=== PATIENT | male | born 1945 | race Caucasian/White ===

== ENCOUNTER 2016-07-29 10:43 | Day surgery (SDC) | payer MEDICARE, OTHER ==
[2016-07-29] MEDS ORDERED: CEFAZOLIN SODIUM 2 GRAM PREMIX 100 ML IV ONE (10:52)
[2016-07-29] MEDS ORDERED: PROPOFOL 20 ML IV ONE (10:54)
[2016-07-29] MEDS ORDERED: MIDAZOLAM HCL 1 MG/ML 2ML VIAL ONE ×2 (10:54→13:47)
[2016-07-29] MEDS ORDERED: FENTANYL 100 MCG/2 ML VIAL ONE ×2 (10:55→13:47)
[2016-07-29] MEDS ORDERED: CEFAZOLIN SODIUM 2 GRAM PREMIX 100 ML IV PRN (11:00)
[2016-07-29] MEDS ORDERED: SODIUM CHLORIDE 0.9% 1,000 ML ONE (11:20)
[2016-07-29] MEDS ORDERED: IV START KIT ONE (11:45)
[2016-07-29] MEDS ORDERED: NERVE BLOCK PROCEDURAL TRAY 1 EACH ONE (11:59)
[2016-07-29] MEDS ORDERED: ROPIVACAINE 0.5% 30 ML VIAL ONE (11:59)
[2016-07-29 12:07] VITALS: BMI 31.0
[2016-07-29] MEDS ORDERED: ONDANSETRON 4 MG/2ML 2 ML VIAL ONE (14:21)
[2016-07-29] MEDS ORDERED: HYDROMORPHONE HCL 1 MG/ML SYRINGE IV PRN ×2 (14:52→15:48)
[2016-07-29] MEDS ORDERED: MEPERIDINE 25 MG/ML SYRINGE IV PRN (14:52)
[2016-07-29] MEDS ORDERED: NALOXONE HCL 0.4 MG/ML VIAL IV PRN (14:52)
[2016-07-29] MEDS ORDERED: LABETALOL HCL 5 MG/ML 20ML VIAL IV PRN (14:52)
[2016-07-29] MEDS ORDERED: PROMETHAZINE HCL 25 MG/ML VIAL IM PRN (14:52)
[2016-07-29] MEDS ORDERED: ONDANSETRON 4 MG/2ML 2 ML VIAL IV PRN ×2 (14:52→15:48)
[2016-07-29] MEDS ORDERED: ATROPINE SULFATE 0.4 MG/1 ML VIAL IV PRN (14:52)
[2016-07-29] MEDS ORDERED: HYDRALAZINE HCL 20 MG/1 ML VIAL IV PRN (14:52)
[2016-07-29] MEDS ORDERED: ON-Q PUMP/ROPIVACAINE 0.2% 400 ML in PREMIX BAG 1 EACH NB PRN (14:52)
[2016-07-29] MEDS: FENTANYL 100 MCG/2 ML VIAL IV PRN ×2 (14:57→15:05)
[2016-07-29] MEDS ORDERED: ON-Q PUMP/ROPIVACAINE 0.2% 450 ML ONE (14:59)
[2016-07-29] MEDS ORDERED: LACTATED RINGERS 1,000 ML IV SCH (15:00)
--- NOTE | 2016-07-29 15:00 | PCMBPN ---
Brief Post Op Note: Date of Procedure: 07/29/16 Preoperative Diagnosis: s/p right TKA with suboptimal ROM Postoperative Diagnosis: 1. [Same] Procedure: closed manipulation right TKA Surgeon: Dillon Muir MD Anesthesia: general/add block ([place]) Findings: ROM obtained to 120 flexion Condition: stable to par Complications: none IV Fluids: 900 mLs of LR [] Urine Output:no acosta Estimated Blood Loss: 0 Tourniquet Time: [N/A] Specimens: [N/A] Implants: none Drains: [N/A]
--- NOTE | 2016-07-29 15:06 | HP ---
DATE OF CLINIC: 07/24/2016 DANIELE ARMIJO : 1945 PLANNED PROCEDURE: Right Knee Closed Manipulation Under Anesthesia with Possible Open Arthrotomy and Debridement S/P Total Knee Replacement 05/20/16 DATE OF PROCEDURE: July 29, 2016 SURGEON: Dr. Dillon Muir PCP: Dr. Carlton Bobby HISTORY OF PRESENT ILLNESS Daniele Armijo is a 71 year old male. * Medication list reviewed with patient allergy list reviewed with patient. Mr. Armijo f/u today with his s/p right TKA completed on 05/20/16. Patient presents in good spirits. He is ambulating without an assistive device. He is still struggling with his motion, but he has reached the 90 degree flexion point with PT. He has not suffered any traumatic events. He states that after therapy his knee does get quite stiff, but then loosens up. He is off of pain medication at this point, but does have 5/10 pain when he works hard with therapy. PT is ongoing at [facility] in [place]. Patient denies any fever, wound complications, motor or sensory dysfunction. CURRENT MEDICATION * Calcium + D3 600-200 MG-UNIT Tablet 2 once a day 0 days, 0 refills * Glucosamine Chond Complex/MSM Tablet 2 once a day 0 days, 0 refills * Lantus Insulin 120 Injectable as directed 45 units daily, 0 days, 0 refills * Levothyroxine Sodium 75 MCG Tablet 1 once a day 0 days, 0 refills * MethylPREDNISolone 4 MG Tablet Therapy Pack Medrol Dose pack - Instructions per pharmacy, 7 days, 0 refills * NovoLOG 100 UNIT/ML Solution as directed 0 days, 0 refills * Omeprazole 20 MG Tablet Delayed Release as directed 1 tablet every other day, 0 days, 0 refills * OxyCODONE HCl 5 MG Tablet 1-2 po q 4 hours for break thru pain if needed-TO BE USED FOR AFTER SURGERY, 5 days, 0 refills * Pravastatin Sodium 40 MG Tablet 1 once a day 0 days, 0 refills * SudoGest 12 Hour 120 MG Tablet Extended Release 12 Hour as needed 0 days, 0 refills * Tamsulosin HCl 0.4 MG Capsule 1 once a day 0 days, 0 refills * TraMADol HCl 50 MG Tablet 1 po q 6 hours prn pain-TO BE USED FOR AFTER SURGERY, 5 days, 0 refills PAST MEDICAL/SURGICAL HISTORY Reported: Medical: Diabetes Mellitus and Thyroid Disorder. Surgical / Procedural: Knee replacement Right knee replaced 05/20/[address] Muir, Hernia repair umbilical 2009, Arthroscopy Right knee scope/PMM/PLM/chondral debridement 07/25/[address] Muir, and Tonsilectomy 1955. SOCIAL HISTORY Behavioral: Caffeine use Occ and non-smoker never smoked. Smoking status: Never smoker. Alcohol: Alcohol 2-3 beers a year and alcohol use Seldom. Work: Occupation Retired automobile accessories installer. ALLERGIES * No Known Allergies REVIEW OF SYSTEMS Systemic: No fever and no recent weight change. Head: No head symptoms. Cardiovascular: No cardiovascular symptoms. Pulmonary: No pulmonary symptoms. Gastrointestinal: No gastrointestinal symptoms. Psychological: No psychological symptoms. Skin: No skin lesions and no rash. PHYSICAL FINDINGS * Vitals taken 07/24/2016 09:38 am BP-Sitting R 130/87 mmHg 100 - 120/60 - 80 BP Cuff Size Regular Pulse Rate-Sitting 80 bpm 50 - 100 Respiration Rate 16 per min 18 - 26 Temp-Oral 98.1 F 96 - 101 Height 71 in 64 - 74 Weight 225 lbs 121 - 205 Body Mass Index 31.4 kg/m2 Body Surface Area 2.22 m2 Pain Level 4 Ears, Nose, Throat: * ENT: normal. Lungs: * Clear to auscultation. Cardiovascular: Heart Rate and Rhythm: * Normal. Abdomen: * Normal. Neurological: Motor: * Dominant Hand = Left Hand. This is a well-developed, well-nourished, obese, 70-year-old male presenting to the office today in no acute distress. He is alert and oriented x4 with a normal mood and affect. Exam of the lower extremities: Patient is ambulating today with a stiffened gait lacking full extension on swing through, otherwise moving in a mid-foot to toe fashion. He has good balance and stance. Exam of the right knee reveals the incision site to be well-healed and benign in appearance. The skin is otherwise free of wound, rash, lesion or discoloration. Patient does have a moderate effusion. He has minimal focal periarticular tenderness on palpation. AROM was 3-80 degrees with improvement passively to near 90 degrees. The thigh exhibited some tightness laterally over the IT band. Patient notes he has had some spasm at that point intermittently. Thigh was otherwise soft and NT. The patella was tracking well. The calf was soft and NT. The distal motor, sensory and vascular function is intact with palpable dorsalis and posterior tibialis pulses. ASSESSMENT * Aftercare following joint replacement surgery - doing reasonably well 6 weeks post right TKA, however motion remains suboptimal THERAPY * Patient fall risk screen positive. * Patient eligible for fall risk assessment. * Patient received fall risk assessment. PLAN * OTHER TraMADol HCl 50 MG TABS, 1 po q 6 hours prn pain-TO BE USED FOR AFTER SURGERY, 5 days, 0 refills * Aftercare following joint replacement surgery OxyCODONE HCl 5 MG TABS, 1-2 po q 4 hours for break thru pain if needed-TO BE USED FOR AFTER SURGERY, 5 days, 0 refills Right knee closed manipulation under anesthesia with possible open arthrotomy and debridement. Discussed with patient in detail the limitations, expectations as well as risks and possible complications of surgery including, but not limited to wound problems or infection, neurovascular injury, continue knee pain, stiffness or dysfunction including the possibility of prosthetic wear or failure over time that may require additional operative or non-operative treatment. Patient also realizes the perioperative risks including risks associated with anesthesia and would like to proceed. A full PAR conference was held, questions and concerns addressed and informed consent was obtained. Patient will be sent from my office for completion of the preoperative workup. We will plan on using an adductor nerve block and catheter for post op pain management as well as a CPM machine. He will likely stay extended [facility] Carlton Bobby MD Internal Medicine [facility] CC: Carlton Bobby MD Internal Medicine [facility]/
[2016-07-29] MEDS ORDERED: HYDROMORPHONE HCL 1 MG/ML SYRINGE ONE (15:09)
--- NOTE | 2016-07-29 15:44 | RAD ---
Exam: Two-view right knee COMPARISON: 07/05/2016, 05/20/2016 and 02/03/2015 INDICATION: Status post right knee manipulation. FINDINGS: AP and lateral views of the right knee were obtained. Soft tissue swelling persists anteriorly, and there is a moderate joint effusion. Postsurgical changes of total right knee arthroplasty are similar. Alignment is normal. No pericomponent fracture is identified. IMPRESSION: Anterior soft tissue swelling and moderate joint effusion. Otherwise remarkable evaluation of the right TKA.
[2016-07-29] MEDS ORDERED: PANTOPRAZOLE 40 MG TABLET DR PO SCH (15:48)
[2016-07-29] MEDS ORDERED: TRAMADOL HCL 50 MG TABLET PO PRN (15:48)
[2016-07-29] MEDS: OXYCODONE HCL 5 MG TABLET PO PRN ×2 (16:22→20:23)
[2016-07-29] MEDS ORDERED: SODIUM CHLORIDE 0.9% FLUSH 10 ML ONE (16:36)
[2016-07-29] MEDS ORDERED: HYDROMORPHONE HCL 0.5 MG/0.5 ML SYRINGE IV PRN (17:27)
[2016-07-29] MEDS: SODIUM CHLORIDE 0.9% 1,000 ML IV SCH (17:41)
[2016-07-29] MEDS ORDERED: INSULIN ASPART (DOSE) 100 UNITS/1 ML SUB-Q PRN (19:26)
[2016-07-29] MEDS: ACETAMINOPHEN 325 MG TABLET PO PRN (20:23)
[2016-07-29] MEDS ORDERED: PRAVASTATIN SODIUM 20 MG TABLET PO SCH (21:00)
[2016-07-30] MEDS: ACETAMINOPHEN 325 MG TABLET PO PRN ×2 (02:34→08:00)
[2016-07-30] MEDS: OXYCODONE HCL 5 MG TABLET PO PRN ×2 (02:34→07:59)
[2016-07-30] MEDS: SODIUM CHLORIDE 0.9% 1,000 ML IV SCH (06:12)
--- NOTE | 2016-07-30 08:02 | CONS ---
Daniele Armijo [id number] DATE OF ADMISSION: July 29, 2016 DATE OF CONSULTATION: July 29, 2016 PHYSICIAN REQUESTING CONSULTATION: Dr. Dillon Muir REASON FOR CONSULTATION: Assistance in the perioperative management of the patient's medical problems. These medical problems include: 1. Osteoarthritis of the lower extremities. 2. Adult onset diabetes on insulin. 3. Hypothyroidism on thyroid replacement. 4. Gastroesophageal reflux disease. 5. Benign prostatic hypertrophy. 6. Hypercholesterolemia. PROCEDURES PERFORMED DURING HIS HOSPITALIZATION: Include right knee closed manipulation under anesthesia. PREOPERATIVE REVIEW OF SYSTEMS: Negative for any recent problems with fevers, chills, fatigue, weakness, upper respiratory symptoms, cough, chest pain, shortness of breath, chest pain or palpitations. He denies any lower extremity edema. He has had no nausea, vomiting, diarrhea, constipation, or abdominal pain. He denies any headaches, fainting, blackouts, or seizures. No urinary complaints. Review of systems is otherwise negative. PAST MEDICAL HISTORY: Significant for a right total knee arthroplasty performed on May 20, 2016. He has had no other recent hospitalizations. No history of chronic lung disease or cardiac disease. He has had a history of adult onset diabetes and has been on insulin for over 10 years. He has had some chronic stage III kidney disease due to his diabetes with a baseline creatinine around 1.5 to 1.7 followed by nephrology. He has had a history of hypothyroidism on thyroid replacement, history of gastroesophageal reflux disease on proton pump inhibitor therapy with Prilosec and benign prostatic hypertrophy stable on medication, hypercholesterolemia stable on medication. PAST SURGICAL HISTORY: Significant for the right total knee arthroplasty as mentioned above. He also has had arthroscopic surgery on his right knee in July 2015 with debridement of his cartilage. He had an umbilical hernia repair in 2009, tonsillectomy in 1956. ALLERGIES: HE INDICATES THAT HE HAS HAD some DYSPEPSIA ASSOCIATED WITH ASPIRIN AND NONSTEROIDAL DRUGS IN THE PAST. CURRENT MEDICATIONS: 1. Tramadol 50 mg every 6 hours as needed for pain. 2. Pravachol 40 mg at bedtime. 3. Prilosec 20 mg every other day. 4. Multivitamin once daily. 5. Levothroid 75 mcg daily. 6. NovoLog insulin 10 to 15 units subcutaneously three times a day with meals. 7. Glargine insulin 45 units subcutaneously with breakfast in the morning. 8. Glucosamine with chondroitin 2 tablets daily. 9. Calcium with vitamin D one tablet daily. 10. Vitamin C 1000 mg daily. FAMILY HISTORY: Significant for father who of leukemia and a sister who has insulin dependent diabetes. SOCIAL HISTORY: He drinks coffee occasionally. Denies smoking history. Rarely drinks alcohol. He is . He is retired. He lives on a ground level floor with two stairs. His primary care provider is Dr. Carlton Bobby. PHYSICAL EXAMINATION: VITAL SIGNS: Show a temperature of 98.0, pulse 76, blood pressure 140/70, respirations 20, oxygen saturation is 96% on room air. Body mass index 31.1, weight is 101 kg. GENERAL: This is a slightly obese male in no acute distress. HEENT: Unremarkable. NECK: Supple without lymphadenopathy or thyromegaly. LUNGS: Clear to auscultation bilaterally. CARDIOVASCULAR: Reveals a regular rate and rhythm without a murmur. ABDOMEN: Soft, nontender, nondistended with positive bowel sounds. EXTREMITIES: Show skin is warm, dry, and intact. There is no peripheral edema. NEUROLOGIC: Nonfocal. PREOPERATIVE LABORATORY WORK: Done on July 21, showed a white count of 8.6, hemoglobin of 13.2, platelet count of 417,000. Coagulation panel was normal. Chemistry profile showed a sodium of 141, potassium 4.3, creatinine of 1.5, glucose of 80. Urinalysis was unremarkable. ASSESSMENT: The patient has had manipulation of the right knee under anesthesia. Will defer to the orthopedic service for management of his orthopedic care. He has a history of osteoarthritis of his lower extremities and likely will have adequate pain management with postoperative pain meds. He has a history of adult onset diabetes on insulin. We will manage his insulin postoperatively. Anticipate returning to his usual dose of insulin tomorrow. He has hypothyroidism and will continue his thyroid replacement therapy as ordered. He has gastroesophageal reflux disease, will continue with proton pump inhibitor therapy as he does at home. Benign prostatic hypertrophy, but he is not currently on any prostate drugs, will follow. He has hypercholesterolemia on Pravachol, will continue this and chronic stage III kidney disease which appears to be stable. The hospitalist service will follow the patient in the postoperative period. He will return to the care of his primary care provider, Dr. Carlton Bobby at discharge. JOB: [id number] CC: Dr. Carlton Muir
[2016-07-30 08:04] VITALS: BP 143/73
--- NOTE | 2016-07-30 08:42 | PDOC36 ---
Provider Note Note: patient had comfortable night and has continued use of CPM with good pain control. Adductor block decreased today. ROM to >95 flexion. Able to do ISLR. will plan D/C from extended SDC after AM PT. Instructions reviewed.
[2016-07-30] MEDS ORDERED: LEVOTHYROXINE SODIUM 75 MCG TABLET PO SCH (09:00)
[2016-07-30] MEDS ORDERED: INSULIN GLARGINE (DOSE) 100 UNITS/ML UNIT SUB-Q SCH (09:00)
[2016-07-30] MEDS ORDERED: MULTIVITAMINS 1 TAB TABLET PO SCH (09:00)
[2016-07-30] MEDS ORDERED: INSULIN ASPART (DOSE) 100 UNITS/1 ML SUB-Q SCH (09:00)
[2016-07-30] MEDS ORDERED: ASCORBIC ACID 500 MG TABLET PO SCH (09:00)
--- NOTE | 2016-08-01 15:46 | OP ---
SHARI GIRON [id number] : 1945 DATE OF SURGERY: July 29, 2016 PREOPERATIVE DIAGNOSIS: Stiffness/arthrofibrosis/poor ROM after right TKA. POSTOPERATIVE DIAGNOSIS: SAME PROCEDURE: Closed manipulation, right knee, under anesthesia. SURGEON: Dillon Muir M.D. ESTIMATED BLOOD LOSS: 0 ANESTHESIA: General plus adductor block per Andi. FLUIDS: IV replacement per anesthesia. TOURNIQUET TIME: Not used DRAINS: None COMPLICATIONS: None INDICATION: Patient is a 71-year-old male who is just over 2 months post right TKA. This has been complicated by suboptimal motion. Recommendation to proceed with manipulation under anesthesia and placement of an adductor nerve catheter for postop pain management. For additional details, please refer to the previously dictated preoperative History and Physical Exam. PAR conference held, questions and concerns addressed and informed consent obtained. PROCEDURAL DESCRIPTION: Patient was taken to the operating room after placement of an adductor nerve block and catheter. General anesthesia was induced. The lower extremity was then evaluated under anesthesia. ROM was approximately 5-80 degrees. With careful monitored passive stretch over a course of approximately 15 minutes I was able to obtain palpable adhesiolysis with motion to 120 degrees of flexion and near full extension. This was documented with a goniometer. Following the procedure he had gravity flexion well past 105 degrees. Satisfied, he was awakened, extubated transferred to his hospital bed and sent to post anesthesia recovery in stable condition. He tolerated the procedure well. CHASTITY/mrw CC: Anson Gamino
--- NOTE | 2016-08-02 15:19 | DS ---
Daniele GIRON [id number] : 1945 DATE OF ADMISSION: July 29, 2016 DATE OF DISCHARGE: July 30, 2016 DISCHARGE DIAGNOSES: Suboptimal motion right total knee arthroplasty completed May 20, 2016. HOSPITAL PROCEDURES: Closed manipulation under anesthesia right total knee arthroplasty. SURGEON: Dillon Muir M.D. BRIEF HISTORY: Patient is a 71-year-old male who underwent a right total knee arthroplasty on May 20, 2016. Unfortunately in his rehabilitation he has not achieved optional range of motion. Therefore requiring manipulation under anesthesia for the full history please see the chart note. BRIEF HOSPITAL COURSE: Patient was admitted on July 29, 2016. Dr. Dillon Muir performed a right total knee arthroplasty manipulation under anesthesia. They were moved to the recovery room in stable condition. They were given 4 doses of antibiotic for empiric coverage. DVT prophylaxis consisted of aspirin, AURORA hose and AV foot pumps and mobility. PT was instituted postop day 1 with right total knee arthroplasty protocol, weightbearing as tolerated. They were discharged home on postop day, 1 to continue their outpatient PT at [facility] with right total knee arthroplasty protocol, weightbearing as tolerated. Dr. Ken Morel was consulted to manage perioperative medical comorbidities for his consultation, please see the chart note. DISCHARGE INSTRUCTIONS: 1. Keep the wound site clean. May shower with Aquacel dressing intact. Call office with any questions or concerns and f/u for your dressing change as scheduled 1 week postop. 2. Continue the use of AURORA hose bilaterally. 3. Cooling unit 3-4 times daily for 30 minutes duration. 4. Outpatient PT at [facility] for right total knee arthroplasty protocol, weightbearing as tolerated. MEDICATIONS: 1. Patient is to resume normal preop medications. 2. Anti-coagulation will be with aspirin for anticoagulation 325 mg. 3. Pain management will be with Oxycodone, 5mg 1-2 every 4 hours prn for breakthrough pain, and Tramadol, 50mg every 6 hours prn pain. 4. Patient was also advised on utilization of a multi-vitamin with mineral daily as well as Vitamin C, 500mg daily for 1 month. 5. Patient encouraged to take an iron supplement in the form of ferrous sulfate, 325mg daily for 4 weeks. 6. Colace, 100mg, b.i.d. until regular bowel movement. FOLLOW-UP: Please return to the clinic as scheduled for your first scheduled postop check. Prior to that point in time please call with any questions or concerns. Job [id number] CC: Anson Bobby M.D. [facility]
== END 2016-07-30 11:05 | disposition home or self-care (01) ==
LOC: SDC 10:43 → MS 17:17 → SDC 07-30 11:05
PROVIDERS: ATTEND Orthopaedic Surgery
PROC: 0SSCXZZ Reposition Right Knee Joint, External Approach (ICD-10-PCS; principal; 2016-07-29)
DX: Z47.1 Aftercare following joint replacement surgery (principal); M24.661 Ankylosis, right knee; Z96.651 Presence of right artificial knee joint; E11.9 Type 2 diabetes mellitus without complications; Z79.4 Long term (current) use of insulin; E03.9 Hypothyroidism, unspecified; K21.9 Gastro-esophageal reflux disease without esophagitis; N40.0 Benign prostatic hyperplasia without lower urinary tract symptoms; E78.00 Pure hypercholesterolemia, unspecified; M19.90 Unspecified osteoarthritis, unspecified site; Z88.6 Allergy status to analgesic agent
CPT/HCPCS: 73560; 97530; 97161; 27570; A9270 ×12; J1170 ×2; J3010 ×3; J2795 ×3; J2250 ×2; J2405; J7030; A4306; J1815 ×3; J0690